=== PATIENT | female | born 1960 | race Caucasian/White ===

== ENCOUNTER 2016-10-15 08:42 | Outpatient (CLI) | payer BC ==
[2016-10-15 09:29] LABS: Bilirubin Negative (Negative); Blood, Urine Negative (Negative); Clarity Clear (Clear); Glucose, Urine (Dipstick) Negative (Negative); Leukocyte Negative (Negative); Nitrite Negative (Negative); Protein, Urine (Dipstick) Negative (Neg-Trace); Urobilinogen 0.2 mg/dL (0.2-1.0); pH, Urine 5.5 (5.0-9.0)
[2016-10-15 09:41] LABS: Hemoglobin A1c 5.3 % (4.0-6.0)
[2016-10-15 09:49] LABS: ALT (SGPT) 90 U/L (8-55); AST (SGOT) 43 U/L (5-34); Albumin 4.3 g/dL (3.5-5.0); Alkaline Phosphatase 95 U/L (40-150); Anion Gap 16 mmol/L (10-20); BUN (Urea Nitrogen) 17 mg/dL (9.8-20.1); Bilirubin, Total 0.7 mg/dL (0.2-1.2); Calc. Creatinine Clearance 0 mL/min (70-130); Calcium 9.8 mg/dL (7.8-10.44); Carbon Dioxide 23 mmol/L (22-29); Cardiac Risk 5.9 (Less than 4.5); Chloride 104 mmol/L (98-107); Cholesterol 275 mg/dl (< 200 Desired); Estimated GFR-MDRD 68; Globulin 3.3 g/dL (2.4-3.5); Glucose 105 mg/dL (70-105); HDL Cholesterol 47 mg/dL (>60 Neg Risk); LDL Cholesterol, Calculated 189 mg/dL; Potassium 4.2 mmol/L (3.5-5.1); Protein, Total 7.6 g/dL (6.0-8.3); Sodium 139 mmol/L (136-145); Triglycerides 194 mg/dL (Less than 150); Uric Acid 6.9 mg/dL (2.6-6.0)
--- NOTE | 2016-10-15 10:03 | RAD ---
RIGHT FOOT 3 VIEWS: HISTORY: Right foot pain, right great toe pain. FINDINGS/IMPRESSION: Degenerative changes are seen in the 1st metatarsal phalangeal joint. Adjacent soft tissue swelling medially. There is lateral subluxation of the sesamoid bones. Findings are consistent with quaker itial bursitis of the great toe (adjacent to the MTP joint). No fracture, dislocation, or bony dest ruction is otherwise seen. Plantar and posterior calcaneal spurs are present. POS: POP
== END 2016-10-15 08:43 | disposition home or self-care (01) ==
LOC: NAV LAB 08:42
PROVIDERS: ATTEND Internal Medicine
DX: E78.5 Hyperlipidemia, unspecified (principal); I51.7 Cardiomegaly; M1A.9XX0 Chronic gout, unspecified, without tophus (tophi); I10 Essential (primary) hypertension; R10.12 Left upper quadrant pain; M19.072 Primary osteoarthritis, left ankle and foot
CPT/HCPCS: 36415; 80053; 80061; 81003; 83036; 84443; 84550